=== PATIENT | female | born 1985 | race Caucasian/White ===

== ENCOUNTER 2019-02-24 15:57 | Emergency (ER) | payer MEDICAID ==
[~2019-02-24] VITALS: Ht 167.6 cm; Wt 102.0 kg
[2019-02-24] MEDS ORDERED: ketorolac tromethamine 15mg/ml inj. IM ONE (16:25)
[2019-02-24 16:43] VITALS: BP 138/96
== END 2019-02-24 16:49 | disposition home or self-care (01) ==
LOC: ER 15:58
DX: R07.81 Pleurodynia (principal); M25.511 Pain in right shoulder; Z91.013 Allergy to seafood; Z91.018 Allergy to other foods; W22.09XA Striking against other stationary object, initial encounter; Y93.89 Activity, other specified; Y92.89 Other specified places as the place of occurrence of the external cause; Y99.8 Other external cause status
CPT/HCPCS: 71101; 96372; 99283; J1885

== ENCOUNTER 2020-12-24 09:02 | Emergency (ER) | payer MEDICAID ==
[~2020-12-24] VITALS: Ht 167.6 cm; Wt 100.0 kg
[2020-12-24 09:31] VITALS: BP 109/82
--- NOTE | 2020-12-24 09:34 | NUR ---
covid swab hand delivered by charge at [id number]
--- NOTE | 2020-12-24 10:30 | NUR ---
PPT CALLED AT HOME AND NOTIFIED OF RESULTS AND NEED TO QUARANTINE.
== END 2020-12-24 10:31 | disposition home or self-care (01) ==
LOC: ER 09:03
DX: U07.1 COVID-19 (principal); Z91.018 Allergy to other foods; Z90.49 Acquired absence of other specified parts of digestive tract; Z98.891 History of uterine scar from previous surgery; Z98.51 Tubal ligation status
CPT/HCPCS: 87635; 99283; C9803